=== PATIENT | female | born 1950 ===

== ENCOUNTER → 2019-10-14 | Outpatient (CLI) | payer OTHER ==
[~2019-10-14] MED LIST: COZAAR100 MG; NORVASC5 MG; PREDNISONE20 MG PO; SYNTHROID175 MCG; TUSSI PRES-B L120 M1 PO
== END | disposition home or self-care (01) ==
LOC: NUCLEAR 07:16
PROVIDERS: ATTEND Internal Medicine Cardiovascular Disease
DX: I25.6 Silent myocardial ischemia (principal); I50.1 Left ventricular failure, unspecified
CPT/HCPCS: 78452; 93017; A9500; J1250

== ENCOUNTER 2021-03-10 09:00 | Outpatient (CLI) | payer OTHER | END 2021-03-10 09:15 | disposition home or self-care (01) | LOC: PPH VACUNA 09:00 | PROVIDERS: ATTEND Emergency Medicine Pediatric Emergency Medicine | DX: Z23 Encounter for immunization (principal) ==